=== PATIENT | female | born 1975 | race Caucasian/White ===

== ENCOUNTER → 2016-11-02 | Outpatient (CLI) | payer OTHER | LOC: BMCIMAGING 12:34 | PROVIDERS: ATTEND Family Medicine | DX: Z12.31 Encounter for screening mammogram for malignant neoplasm of breast (principal); Z80.3 Family history of malignant neoplasm of breast; R92.8 Other abnormal and inconclusive findings on diagnostic imaging of breast | CPT/HCPCS: G0202 ==

== ENCOUNTER → 2016-11-07 | Outpatient (CLI) | payer OTHER | LOC: FIMAGING 14:46 | PROVIDERS: ATTEND Registered Nurse General Practice | DX: Z03.89 Encounter for observation for other suspected diseases and conditions ruled out (principal) | CPT/HCPCS: G0206 ==

== ENCOUNTER → 2017-08-23 | Outpatient (CLI) | payer OTHER | LOC: FIMAGING 13:24 | PROVIDERS: ATTEND Family Medicine | DX: N60.01 Solitary cyst of right breast (principal); N60.02 Solitary cyst of left breast ==

== ENCOUNTER 2017-11-23 09:33 | Day surgery (SDC) | payer OTHER ==
[2017-11-23] MEDS ORDERED: ceFAZolin 2 GM/DEXTROSE 100 ML IV ONE ×2 (09:35→10:18)
[2017-11-23] MEDS ORDERED: LR 1,000 ML IV ONE (10:26)
[2017-11-23] MEDS ORDERED: LIDOCAINE 1% 2 ML INJ ID PRN (10:26)
[2017-11-23] MEDS ORDERED: BUPIVACAINE 0.25% 30 ML SDV ONE (11:39)
[2017-11-23] MEDS ORDERED: MIDAZOLAM 2 MG/2 ML VIAL IVP ONE (12:34)
--- NOTE | 2017-11-23 12:34 | PDANEPAE ---
ANE History of Present Illness upper arm malignancy ANE Past Medical History - Cardiovascular History Hx Hypertension: No Hx Arrhythmias: No Hx Chest Pain: No Hx Coronary Artery / Peripheral Vascular Disease: No Hx CHF / Valvular Disease: No Hx Palpitations: No - Pulmonary History Hx COPD: No Hx Asthma/Reactive Airway Disease: No Hx Recent Upper Respiratory Infection: No Hx Oxygen in Use at Home: No Hx Sleep Apnea: No Sleep Apnea Screening Result - Last Documented: Negative - Neurologic History Hx Cerebrovascular Accident: No Hx Seizures: No Hx Dementia: No - Endocrine History Hx Diabetes: No - Renal History Hx Renal Disorders: No - Liver History Hx Hepatic Disorders: No - Neurological & Psychiatric Hx Hx Neurological and Psychiatric Disorders: No - Cancer History Hx Cancer: Yes 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 hernia repair at 10 yo ANE Review of Systems Review of Systems: - Exercise capacity METS (RN): 4 METS ANE Patient History - Allergies Allergies/Adverse Reactions: Sulfa (Sulfonamide Antibiotics) Allergy (Verified 11/22/17 18:56) Rash - Home Medications Home medications: home medication list seen and reviewed Home Medications: NK [No Known Home Meds] 11/22/17 [Last Taken Unknown] - NPO status NPO Since - Liquids (Date): 11/23/17 NPO Since - Liquids (Time): 08:30 NPO Since - Solids (Date): 11/22/17 NPO Since - Solids (Time): 20:00 - Anes Hx Anes Hx: no prior problems - Smoking Hx Smoking Status: Never smoked - Family Anes Hx Family Hx Anesthesia Complications: none ANE Labs/Vital Signs - Vital Signs Blood Pressure: 132/82 Heart Rate: 75 Respiratory Rate: 16 O2 Sat (%): 100 Height: 165.1 cm Weight: 55.338 kg ANE Physical Exam - Airway Neck exam: FROM Mallampati Score: Class 1 Mouth exam: normal dental/mouth exam - Pulmonary Pulmonary: no respiratory distress, no rales or rhonchi - Cardiovascular Cardiovascular: regular rate and rhythym, no murmur, rub, or gallop - ASA Status ASA Status: II ANE Anesthesia Plan Anesthesia Plan: GA w LMA
[2017-11-23] MEDS ORDERED: ONDANSETRON 4 MG/2 ML VIAL ONE (12:38)
[2017-11-23] MEDS ORDERED: PROPOFOL 200 MG/20 ML VIAL ONE ×2 (12:38→13:29)
[2017-11-23] MEDS ORDERED: fentaNYL 100 MCG/2 ML INJ ONE (12:38)
[2017-11-23] MEDS ORDERED: DEXAMETHASONE 4 MG/ML VIAL ONE (12:38)
[2017-11-23] MEDS ORDERED: LIDOCAINE 2% 5 ML SDV ONE (12:38)
[2017-11-23] MEDS ORDERED: NALOXONE HCL 0.4 MG/ML INJ IVP PRN (14:09)
[2017-11-23] MEDS ORDERED: fentaNYL 100 MCG/2 ML INJ IVP PRN (14:09)
[2017-11-23] MEDS ORDERED: ONDANSETRON 4 MG/2 ML VIAL IVP PRN (14:09)
[2017-11-23] MEDS ORDERED: PROMETHAZINE HCL 25 MG/ML INJ IVP PRN (14:09)
[2017-11-23] MEDS ORDERED: HYDROmorphONE/DILAUDID 1 MG/ML INJ IVP PRN (14:09)
[2017-11-23] MEDS ORDERED: BACITRACIN ZINC 14.2 GM OINTTUBE TP ONE (14:36)
--- NOTE | 2017-11-23 15:10 | POSTANESTH ---
Post Anesthetic Evaluation Cardiovascular Status: Similar to Pre-Op Cond Respiratory Status: Similar to Pre-op Cond. Level of Consciousness/Mental Status: Can Participate in Eval Pain Control: Adequate, Prn Tx Ordered Nausea/Vomiting Control: Adequate, Prn Tx Ordered Complications Possibly Related to Anesthesia: None Noted
[2017-11-23] MEDS ORDERED: ONDANSETRON DISINTEGRATING 4 MG TAB PO PRN (15:30)
[2017-11-23] MEDS ORDERED: HYDROCODONE/APAP 5/325 TAB PO PRN (15:30)
--- NOTE | 2017-11-23 15:34 | POSTOPPROG ---
Post Op Note Date of Operation: 11/23/17 Surgeon: Benson Baird (, FACS) Anesthesiologist: Chanel Anesthesia: Other (Specify) (General LMA) Pre-op Diagnosis: malignant melenoma right posterior upper arm Procedure: wide excision melanoma/sentinel node biopsy Findings: 3/3 right axillary nodes negative by frozen section Inf/Abcess present in the surg proc area at time of surgery?: No EBL: Minimal
[2017-11-23 16:00] VITALS: BP 114/68
--- NOTE | 2017-11-23 19:06 | GOP ---
[f rep st] OPERATIVE REPORT DATE OF OPERATION: 11/23/2017 SURGEON: Benson Baird MD ANESTHESIA: General by laryngeal mask. ANESTHESIOLOGIST: Mello Buchanan MD PREOPERATIVE DIAGNOSIS: Right posterior upper arm melanoma. POSTOPERATIVE DIAGNOSIS: Right posterior upper arm melanoma. PROCEDURE PERFORMED: Wide excision of right posterior upper arm melanoma and sentinel node biopsy. FINDINGS: 3/3 sentinel lymph nodes negative for evidence of metastatic malignancy, right axilla, lev el 1. Wide excision of right posterior upper arm with 2 cm margins from the previously excised melan marta bed, marked for orientation and submitted for permanent section. ESTIMATED BLOOD LOSS: 10 cc. DESCRIPTION OF PROCEDURE: After informed consent was obtained, the patient was brought to the operat ing room and placed under general anesthesia. The right upper extremity and chest wall were prepped and draped in the usual fashion with chlorhexidine. Before proceeding, a time-out and identification of the patient was performed. The Neoprobe (gamma detector) was used to scan the area and identify the point of maximum increased i ntensity in the patient's axilla. The skin was marked with a marking pen and infiltrated with 0.25% Marcaine, incised transversely to approximately the mid anterior axilla. Dissection was carried thro ugh the skin and subcutaneous tissue, superficial axillary fascia. The 1st of 3 sentinel nodes was t he largest and had counts in the 1200 counts per minute range. This was somewhat less than 1 cm in s ize, was teased from surrounding fibrofatty tissue of the deep level 1 chain. Lymphovascular structu res were hemoclipped and divided. The node was removed from the field. This proved to be in fact 2 nodes. The larger 1 identified grossly and a smaller lymph node, quite distinct at the base. This a lso had elevated counts though only approximately 400 counts per minute. These were set aside as sen tinel nodes #1 and 2. Re interrogating axilla revealed a 3rd area of activity meeting criteria for s entinel node inclusion. This node was teased from the surrounding fibrofatty tissue of the axilla. Lymphovascular structures were hemoclipped and divided. The node was removed from the field. It amador sured approximately 6-7 mm in diameter. All 3 nodes were submitted for frozen section and appeared c linically uninvolved. The axillary incision was left open. Hemostasis appeared secure. The patient 's arm was then rotated anterior to the chest and the posterior melanoma bed was excised sharply with 2 cm margin, was marked on the skin. The skin was incised circumferentially and cautery dissection was used to dissect the deep subcutaneous tissue circumferentially and the skin from the un derlying posterior upper arm. This was tagged for orientation separately designating the inferior po sterior (lateral), the anterior (medial), and superior margins individually with separate ink along t he edge of the specimen. The inferior margin was inked blue. Superior margin was inked red. The la teral/posterior margin was inked orange and the medial anterior margin was inked yellow. The specime n was submitted in formalin for permanent section. The deep subcutaneous tissues were undermined for a distance of approximately 2 cm in all directions and there appeared to be enough laxity in the pat ient's skin for primary closure. The superficial fascia and deep subcutaneous tissues were approxima radha with interrupted 2-0 Vicryl sutures. Subcutaneous tissues were approximated with 3-0 Monocryl khalil ture and the skin was closed with interrupted 3-0 Prolene sutures in a horizontal mattress fashion. As we were closing the melanoma excision site, pathology called to report that the frozen section on 3 submitted nodes showed no evidence of metastatic malignancy. Permanent section was requested. Hem ostasis appeared secure within the axillary incision. The deep subcutaneous tissues were approximate d with 3-0 Monocryl suture. Skin was closed with 4-0 Monocryl suture in a subcuticular fashion. Top ical Mastisol and Steri-Strips were applied to the axillary incision. Both incisions were covered wi th sterile gauze followed by Tegaderm and a Coban was wrapped around the right upper extremity for ge ntle compression. The patient was extubated and brought to the recovery room in satisfactory condition. Needle, sponge , and instrument count were correct. COMPLICATIONS: None. Copy requested to: Frank Pressley /[id number]/MODL
== END 2017-11-23 16:05 | disposition home or self-care (01) ==
LOC: FSGY 09:33
PROVIDERS: ATTEND Surgery
PROC: 07B50ZZ Excision of Right Axillary Lymphatic, Open Approach (ICD-10-PCS; principal; 2017-11-23 13:00)
PROC: 0HBBXZZ Excision of Right Upper Arm Skin, External Approach (ICD-10-PCS; principal; 2017-11-23 13:00)
PROC: C71N1ZZ Planar Nuclear Medicine Imaging of Upper Extremity Lymphatics using Technetium 99m (Tc-99m) (ICD-10-PCS; principal; 2017-11-23 13:00)
DX: C43.61 Malignant melanoma of right upper limb, including shoulder (principal); Z88.2 Allergy status to sulfonamides
CPT/HCPCS: 11603; 38525; 78195; A9520; J0690; J1100; J2250; J2405; J2704; J3010

== ENCOUNTER → 2018-09-12 | Outpatient (CLI) | payer OTHER | LOC: FIMAGING 13:19 | PROVIDERS: ATTEND Family Medicine | DX: Z12.31 Encounter for screening mammogram for malignant neoplasm of breast (principal); Z80.3 Family history of malignant neoplasm of breast ==